=== PATIENT | female | born 1995 | race Caucasian/White ===

== ENCOUNTER 2019-06-03 08:13 | Emergency (ER) | payer OTHER ==
[~2019-06-03] VITALS: Ht 157.5 cm; Wt 91.6 kg
[2019-06-03] MEDS ORDERED: VITAMIN D3400 UNIT PO (08:49)
[2019-06-03] MEDS ORDERED: THERA1 EACH PO (08:50)
[2019-06-03] MEDS ORDERED: MAGNESIUM OXID500 MG PO (08:50)
[2019-06-03 08:56] LABS: Source, Urine Clean Catch
[2019-06-03 08:59] LABS: Appearance, Urine Cloudy (Clear); Bilirubin, Urine Neg (Neg); Blood, Urine 5+ (Neg); Color, Urine Yellow (P-Yellow); Glucose Qualitative, Urine Neg (Neg); Ketones, Urine Neg (Neg); Leukocyte Esterase, Urine 3+ (Neg); Nitrite, Urine Neg (Neg); Protein, Urine 2+ (Neg); Specific Gravity, Urine 1.015 (1.003-1.022); Urobilinogen, Urine NORM (Normal)
[2019-06-03 09:01] LABS: BASOPHILS ABSOLUTE AUTO 0.05 K/mm3 (0.00-0.23); BASOPHILS PERCENT AUTO 0 % (0-2); EOSINOPHILS ABSOLUTE AUTO 0.18 K/mm3 (0.00-0.68); EOSINOPHILS PERCENT AUTO 2 % (0-6); Hematocrit 38.6 % (33.0-51.0); Hemoglobin 13.8 g/dL (11.5-16.0); IMMATURE GRAN ABSOLUTE AUTO 0.04 K/mm3 (0.00-0.10); IMMATURE GRAN PERCENT AUTO 0 % (0-1); LYMPHOCYTES PERCENT AUTO 30 % (21-46); MONOCYTES ABSOLUTE AUTO 1.05 K/mm3 (0.16-1.47); MONOCYTES PERCENT AUTO 9 % (4-13); Mean Corpuscular HGB 31.7 pg (26.0-34.0); Mean Corpuscular HGB Conc 35.8 g/dL (31.5-36.5); Mean Corpuscular Volume 89 fL (80-100); Mean Platelet Volume 11.7 fL (9.1-12.4); NEUTROPHILS ABSOLUTE AUTO 7.26 K/mm3 (1.96-9.15); NEUTROPHILS PERCENT AUTO 59 % (41-73); Platelet Count 274 K/mm3 (150-400); RDW Coefficient Variation 11.1 % (11.7-14.2); RDW Standard Deviation 35.8 fL (35.1-46.3); Red Blood Cell Count 4.35 M/mm3 (3.80-5.20); White Blood Cell Count 12.28 K/mm3 (4.00-11.30)
[2019-06-03 09:20] LABS: Alanine Aminotransfer (ALT/SGP 18 U/L (12-78); Albumin, Blood 3.5 g/dL (3.4-5.0); Albumin/Globulin Ratio 0.8 (0.8-1.8); Alk Phos 93 U/L (50-136); Anion Gap 7 mmol/L (6-16); Aspartate Aminotrans (AST/SGOT 16 U/L (12-37); Bilirubin, Total 0.3 mg/dL (0.1-1.0); Blood Urea Nitrogen 8 mg/dL (8-24); Bun/Creatinine Ratio 9.5 (12.0-20.0); CO2, Blood 24 mmol/L (21-32); Calcium, Blood 8.5 mg/dL (8.5-10.1); Chloride, Blood 106 mmol/L (98-108); Creatinine, Blood 0.84 mg/dL (0.40-1.00); Globulin, Blood 4.2 g/dL (2.2-4.0); Glomerular Filtration Rate >60 (60-); Glucose, Blood 125 mg/dL (70-99); Potassium, Blood 3.2 mmol/L (3.5-5.5); Sodium, Blood 137 mmol/L (136-145); Total Protein, Blood 7.7 g/dL (6.4-8.2)
[2019-06-03 09:30] LABS: White Blood Cells, Urine TNTC /hpf (0-5)
[2019-06-03 09:31] LABS: Bacteria Many /hpf; Squamous Epithelial Cells Few /hpf (Few)
[2019-06-03] MEDS ORDERED: Pyridium200 MG PO (10:47)
[2019-06-03] MEDS ORDERED: CEFP200 PO (10:47)
== END 2019-06-03 11:03 | disposition home or self-care (01) ==
LOC: ER 08:13
PROVIDERS: Emergency Medicine
DX: N39.0 Urinary tract infection, site not specified (principal); N12 Tubulo-interstitial nephritis, not specified as acute or chronic; N83.201 Unspecified ovarian cyst, right side; D72.829 Elevated white blood cell count, unspecified; Z79.899 Other long term (current) drug therapy
CPT/HCPCS: 76705; 76830; 76856; 80053; 81001; 81025; 83690; 85025; 87077; 87086; 87186; 99284-25; J1885; J2405; J7120

== ENCOUNTER → 2019-06-21 | Outpatient (CLI) | payer OTHER ==
[~2019-06-21] MED LIST: CEFP200 PO; MAGNESIUM OXID500 MG PO; Pyridium200 MG PO; THERA1 EACH PO; VITAMIN D3400 UNIT PO
== END | disposition home or self-care (01) ==
LOC: LAB EV 16:43 → LAB SHORT 16:43
DX: N39.0 Urinary tract infection, site not specified (principal)
CPT/HCPCS: 87077; 87086; 87186

== ENCOUNTER → 2019-09-10 | Outpatient (CLI) | payer OTHER | END | disposition home or self-care (01) | LOC: LAB EV 12:43 → LAB SHORT 12:43 | DX: R30.0 Dysuria (principal); R30.9 Painful micturition, unspecified | CPT/HCPCS: 87077; 87086; 87186 ==

== ENCOUNTER 2019-12-03 03:32 | Emergency (ER) | payer OTHER ==
[~2019-12-03] VITALS: Ht 160 cm; Wt 95.2 kg
== END 2019-12-03 04:33 | disposition home or self-care (01) ==
LOC: ER 03:32
DX: J02.8 Acute pharyngitis due to other specified organisms (principal)
CPT/HCPCS: 87081; 87430; 99283; J1100

== ENCOUNTER 2020-08-28 15:09 | Emergency (ER) | payer OTHER ==
[~2020-08-28] VITALS: Ht 160 cm; Wt 79.4 kg
[2020-08-28 16:10] LABS: BASOPHILS ABSOLUTE AUTO 0.03 K/mm3 (0.00-0.23); BASOPHILS PERCENT AUTO 0 % (0-2); EOSINOPHILS ABSOLUTE AUTO 0.02 K/mm3 (0.00-0.68); EOSINOPHILS PERCENT AUTO 0 % (0-6); Hematocrit 39.2 % (33.0-51.0); Hemoglobin 13.7 g/dL (11.5-16.0); IMMATURE GRAN ABSOLUTE AUTO 0.02 K/mm3 (0.00-0.10); IMMATURE GRAN PERCENT AUTO 0 % (0-1); LYMPHOCYTES ABSOLUTE AUTO 1.92 K/mm3 (0.84-5.20); LYMPHOCYTES PERCENT AUTO 23 % (21-46); MONOCYTES ABSOLUTE AUTO 0.59 K/mm3 (0.16-1.47); MONOCYTES PERCENT AUTO 7 % (4-13); Mean Corpuscular HGB 31.8 pg (26.0-34.0); Mean Corpuscular HGB Conc 34.9 g/dL (31.5-36.5); Mean Corpuscular Volume 91 fL (80-100); Mean Platelet Volume 12.2 fL (9.1-12.4); NEUTROPHILS ABSOLUTE AUTO 5.65 K/mm3 (1.96-9.15); NEUTROPHILS PERCENT AUTO 69 % (41-73); Platelet Count 292 K/mm3 (150-400); RDW Coefficient Variation 11.4 % (11.7-14.2); RDW Standard Deviation 38.4 fL (35.1-46.3); Red Blood Cell Count 4.31 M/mm3 (3.80-5.20); White Blood Cell Count 8.23 K/mm3 (4.00-11.30)
[2020-08-28] MEDS ORDERED: LAMO25 (16:18)
[2020-08-28] MEDS ORDERED: METOCLOPRAMIDE H5 M2 PO (16:19)
[2020-08-28 16:35] LABS: Source, Urine Clean Catch
[2020-08-28 16:35] LABS: Alanine Aminotransfer (ALT/SGP 15 U/L (12-78); Albumin, Blood 3.9 g/dL (3.4-5.0); Albumin/Globulin Ratio 1.1 (0.8-1.8); Alk Phos 75 U/L (50-136); Anion Gap 5 mmol/L (6-16); Aspartate Aminotrans (AST/SGOT 12 U/L (12-37); Bilirubin, Total 0.4 mg/dL (0.1-1.0); Blood Urea Nitrogen 6 mg/dL (8-24); Bun/Creatinine Ratio 7.4 (12.0-20.0); CO2, Blood 26 mmol/L (21-32); Chloride, Blood 109 mmol/L (98-108); Creatinine, Blood 0.81 mg/dL (0.40-1.00); Ethanol (Alcohol), Blood, Med <3 mg/dL; Globulin, Blood 3.5 g/dL (2.2-4.0); Glomerular Filtration Rate >60 (60-); Glucose, Blood 104 mg/dL (70-99); Potassium, Blood 3.6 mmol/L (3.5-5.5); Salicylate <1.7 mg/dL (2.8-20.0); Sodium, Blood 140 mmol/L (136-145); Total Protein, Blood 7.4 g/dL (6.4-8.2)
[2020-08-28 16:37] LABS: Appearance, Urine Clear (Clear); Bilirubin, Urine Neg (Neg); Blood, Urine Neg (Neg); Color, Urine Yellow (P-Yellow); Glucose Qualitative, Urine Neg (Neg); Ketones, Urine 1+ (Neg); Leukocyte Esterase, Urine 1+ (Neg); Nitrite, Urine Neg (Neg); Protein, Urine Neg (Neg); Specific Gravity, Urine 1.015 (1.003-1.022); Urobilinogen, Urine 1+ (Normal)
[2020-08-28 16:43] LABS: Acetaminophen, Random <2.0 ug/mL (10.0-30.0)
[2020-08-28 16:48] LABS: Bacteria Few /hpf; Squamous Epithelial Cells Few /hpf (Few)
[2020-08-28 17:14] LABS: U Cannabinoids Screen DETECTED
[2020-08-28 17:15] LABS: U Amphetamine Screen Not Detected; U Barbituate Screen Not Detected; U Benzodiazapine Screen Not Detected; U Buprenorphine Screen Not Detected; U Cocaine Screen Not Detected; U Methadone Screen Not Detected; U Methamphetamine Screen Not Detected; U Opiates Screen Not Detected; U Oxycodone Screen Not Detected; U Phencyclidine Screen Not Detected; U Propoxyphene Screen Not Detected
[2020-08-28] MEDS ORDERED: Ativan1 MG PO ×2 (18:40→18:47)
== END 2020-08-28 19:22 | disposition home or self-care (01) ==
LOC: ER 15:09
PROVIDERS: Physician Assistant
DX: F41.9 Anxiety disorder, unspecified (principal); F43.10 Post-traumatic stress disorder, unspecified; Z79.899 Other long term (current) drug therapy
CPT/HCPCS: 36415; 80053; 81001; 81025; 85025; 87086; 99285; G0480

== ENCOUNTER → 2020-09-16 | Outpatient (CLI) | payer OTHER ==
[~2020-09-16] MED LIST changes: +Ativan1 MG PO; +HYDHCL25 PO; +LAMO25; +METOCLOPRAMIDE H5 M2 PO; +OLAN5 PO
== END | disposition home or self-care (01) ==
LOC: LAB SHORT 11:53
DX: R53.83 Other fatigue (principal)
CPT/HCPCS: 84443; 87086

== ENCOUNTER 2020-09-23 23:53 | Emergency (ER) | payer OTHER ==
[~2020-09-23] VITALS: Ht 157.5 cm; Wt 74.8 kg
[~2020-09-23 23:53] MED LIST changes: -HYDHCL25 PO; -OLAN5 PO
[2020-09-24] MEDS ORDERED: HYDHCL25 PO (01:11)
== END 2020-09-24 01:40 | disposition home or self-care (01) ==
LOC: ER 23:53
DX: T40.7X1A Poisoning by cannabis (derivatives), accidental (unintentional), initial encounter (principal); F30.9 Manic episode, unspecified; Z79.899 Other long term (current) drug therapy; Z88.8 Allergy status to other drugs, medicaments and biological substances
CPT/HCPCS: 99282

== ENCOUNTER 2020-09-28 22:54 | Emergency (ER) | payer OTHER ==
[~2020-09-28] VITALS: Ht 160 cm; Wt 68.0 kg
[~2020-09-28 22:54] MED LIST changes: +HYDHCL25 PO
[2020-09-28] MEDS ORDERED: OLAN5 PO (23:14)
== END 2020-09-29 00:17 | disposition home or self-care (01) ==
LOC: ER 22:54
DX: L98.1 Factitial dermatitis (principal); Z79.899 Other long term (current) drug therapy
CPT/HCPCS: 99282

== ENCOUNTER 2025-01-21 20:18 | Emergency (ER) | payer OTHER ==
[~2025-01-21] VITALS: Ht 160 cm; Wt 88.5 kg
[~2025-01-21 20:18] MED LIST changes: +ACET500 PO; +METO25ER PO; +OLAN5 PO; +PERIDEX15 ML MM
[2025-01-21 20:21] VITALS: BP 156/91
[2025-01-21 20:45] LABS: BASOPHILS ABSOLUTE AUTO 0.05 K/mm3 (0.00-0.23); BASOPHILS PERCENT AUTO 1 % (0-2); EOSINOPHILS ABSOLUTE AUTO 0.12 K/mm3 (0.00-0.68); EOSINOPHILS PERCENT AUTO 1 % (0-6); Hematocrit 37.8 % (33.0-51.0); Hemoglobin 13.3 g/dL (11.5-16.0); IMMATURE GRAN ABSOLUTE AUTO 0.02 K/mm3 (0.00-0.10); IMMATURE GRAN PERCENT AUTO 0 % (0-1); LYMPHOCYTES PERCENT AUTO 20 % (21-46); MONOCYTES ABSOLUTE AUTO 0.67 K/mm3 (0.16-1.47); MONOCYTES PERCENT AUTO 7 % (4-13); Mean Corpuscular HGB Conc 35.2 g/dL (31.5-36.5); Mean Corpuscular Volume 91 fL (80-100); Mean Platelet Volume 11.8 fL (9.1-12.4); NEUTROPHILS ABSOLUTE AUTO 6.77 K/mm3 (1.96-9.15); NEUTROPHILS PERCENT AUTO 71 % (41-73); Platelet Count 281 K/mm3 (150-400); RDW Coefficient Variation 11.5 % (11.7-14.2); RDW Standard Deviation 38.5 fL (35.1-46.3); Red Blood Cell Count 4.15 M/mm3 (3.80-5.20); White Blood Cell Count 9.53 K/mm3 (4.00-11.30)
[2025-01-21 21:05] LABS: Albumin, Blood 3.7 g/dL (3.4-5.0); Albumin/Globulin Ratio 0.9 (0.8-1.8); Bilirubin, Total 0.4 mg/dL (0.1-1.0); Bun/Creatinine Ratio 13.7 (12.0-20.0); Calcium, Blood 8.7 mg/dL (8.5-10.1); Creatinine, Blood 0.8 mg/dL (0.40-1.00); Globulin, Blood 3.9 g/dL (2.2-4.0); Potassium, Blood 3.7 mmol/L (3.5-5.5); Total Protein, Blood 7.6 g/dL (6.4-8.2)
[2025-01-21] MEDS ORDERED: METO25ER PO (23:44)
== END 2025-01-21 23:59 | disposition home or self-care (01) ==
LOC: ER 20:18
PROVIDERS: Student in an Organized Health Care Education/Training Program
DX: M54.2 Cervicalgia (principal); G89.29 Other chronic pain; I10 Essential (primary) hypertension; Z88.8 Allergy status to other drugs, medicaments and biological substances
CPT/HCPCS: 80053; 85025; 99283

== ENCOUNTER 2025-04-27 02:02 | Observation (INO) | payer OTHER ==
[~2025-04-27] VITALS: Ht 160 cm; Wt 89.4 kg
[2025-04-27 03:31] LABS: Source, Urine Clean Catch
[2025-04-27 03:33] LABS: Bilirubin, Urine Neg (Neg); Glucose Qualitative, Urine Neg (Neg); Ketones, Urine Neg (Neg); Leukocyte Esterase, Urine Neg (Neg); Protein, Urine 1+ (Neg); Specific Gravity, Urine 1.010 (1.003-1.022); Urobilinogen, Urine NORM (Normal)
[2025-04-27 03:41] LABS: Color, Urine Yellow (P-Yellow)
[2025-04-27 03:42] LABS: BASOPHILS ABSOLUTE AUTO 0.06 K/mm3 (0.00-0.23); BASOPHILS PERCENT AUTO 1 % (0-2); EOSINOPHILS ABSOLUTE AUTO 0.10 K/mm3 (0.00-0.68); EOSINOPHILS PERCENT AUTO 1 % (0-6); Hematocrit 35.8 % (33.0-51.0); Hemoglobin 12.6 g/dL (11.5-16.0); IMMATURE GRAN ABSOLUTE AUTO 0.02 K/mm3 (0.00-0.10); IMMATURE GRAN PERCENT AUTO 0 % (0-1); LYMPHOCYTES ABSOLUTE AUTO 2.44 K/mm3 (0.84-5.20); LYMPHOCYTES PERCENT AUTO 24 % (21-46); MONOCYTES ABSOLUTE AUTO 0.88 K/mm3 (0.16-1.47); MONOCYTES PERCENT AUTO 9 % (4-13); Mean Corpuscular HGB Conc 35.2 g/dL (31.5-36.5); Mean Corpuscular Volume 91 fL (80-100); NEUTROPHILS ABSOLUTE AUTO 6.53 K/mm3 (1.96-9.15); NEUTROPHILS PERCENT AUTO 65 % (41-73); NRBC ABSOLUTE 0.00 K/mm3 (0.00-0.02); NRBC Auto 0.0 /100 WBC (0.0-0.2); Platelet Count 255 K/mm3 (150-400); RDW Coefficient Variation 11.5 % (11.7-14.2); RDW Standard Deviation 38.5 fL (35.1-46.3)
[2025-04-27 03:42] LABS: Red Blood Cells, Urine 0-2 /hpf (0-2); White Blood Cells, Urine 0-2 /hpf (0-5)
[2025-04-27 03:45] LABS: U Amphetamine Screen Not Detected; U Barbituate Screen Not Detected; U Benzodiazapine Screen Not Detected; U Buprenorphine Screen Not Detected; U Cannabinoids Screen DETECTED; U Cocaine Screen Not Detected; U Methadone Screen Not Detected; U Methamphetamine Screen Not Detected; U Opiates Screen Not Detected; U Oxycodone Screen Not Detected; U Phencyclidine Screen Not Detected
[2025-04-27 04:00] LABS: Ethanol (Alcohol), Blood, Med 5 mg/dL; Salicylate <1.7 mg/dL (2.8-20.0)
[2025-04-27 04:03] LABS: Alanine Aminotransfer (ALT/SGP 22 U/L (12-78); Albumin, Blood 3.5 g/dL (3.4-5.0); Albumin/Globulin Ratio 0.9 (0.8-1.8); Anion Gap 9 mmol/L (3-11); Aspartate Aminotrans (AST/SGOT 23 U/L (12-37); Bilirubin, Total 0.5 mg/dL (0.1-1.0); Blood Urea Nitrogen 5 mg/dL (8-24); CO2, Blood 23 mmol/L (21-32); Calcium, Blood 8.5 mg/dL (8.5-10.1); Chloride, Blood 109 mmol/L (98-108); Creatinine, Blood 0.70 mg/dL (0.40-1.00); Globulin, Blood 3.8 g/dL (2.2-4.0); Glucose, Blood 100 mg/dL (70-99); Potassium, Blood 3.3 mmol/L (3.5-5.5); Sodium, Blood 138 mmol/L (136-145); Total Protein, Blood 7.3 g/dL (6.4-8.2)
[2025-04-27 04:05] LABS: Acetaminophen, Random <2.0 ug/mL (10.0-30.0)
[2025-04-27 08:36] VITALS: BP 122/60
[2025-04-27] MEDS ORDERED: METOPROLOL SUCC25 MG PO (08:38)
[2025-04-27] MEDS ORDERED: VALTREX50013 PO (08:39)
== END 2025-04-27 11:27 | disposition other institution (70) ==
LOC: ER 02:02 → EOR 02:03
PROVIDERS: ADMIT Student in an Organized Health Care Education/Training Program
DX: F31.2 Bipolar disorder, current episode manic severe with psychotic features (principal); R45.850 Homicidal ideations; F43.10 Post-traumatic stress disorder, unspecified; G90.50 Complex regional pain syndrome I, unspecified; I10 Essential (primary) hypertension; Z79.899 Other long term (current) drug therapy; Z88.8 Allergy status to other drugs, medicaments and biological substances; Z91.011 Allergy to milk products
CPT/HCPCS: 80053; 80320; 81001; 81025; 85025; 93005; 93010; 99285; A9270; G0378; G0480

== ENCOUNTER 2025-04-27 07:41 | Inpatient (IN) | payer OTHER ==
[~2025-04-27] VITALS: Ht 160 cm; Wt 93.1 kg
[2025-04-27] MEDS ORDERED: METOPROLOL SUCC25 MG PO (08:38)
[2025-04-27] MEDS ORDERED: VALTREX50013 PO (08:39)
[2025-04-27 11:46] VITALS: BP 137/106
[2025-04-27 13:00] VITALS: BP 137/106
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
[2025-04-27] MEDS ORDERED: Ondansetron 4 MG SoluTab MM PRN ×2 (14:10→20:55)
--- NOTE | 2025-04-27 14:12 | NUR ---
SANDEEP DOCUMENTATION: PT HAS BILATERAL EARRINGS AND PIERCING IN PLACE ABOVE HER L UPPER LIP. SHE STATES THAT SHE WAS IS UNABLE TO REMOVE THESE. CHIEF EMBALMER HAS ATTEMPTED TO ASSIST PT AND SANDEEP WAS NOT ABLE TO BE REMOVED.
[2025-04-27] MEDS ORDERED: Haloperidol Lactate Inj. 5 MG/ML Injection IM PRN (14:15)
[2025-04-27] MEDS ORDERED: Aluminum Hydroxide 320MG/5ML 473 ML PO PRN (14:15)
[2025-04-27] MEDS ORDERED: Polyethylene Glycol 3350 17 gm PO PRN (14:20)
[2025-04-27 20:27] VITALS: BP 134/99
--- NOTE | 2025-04-27 20:45 | NUR ---
NOTIFY DOCTOR DOCTOR ADORE NOTIFIED OF PATIENT REFUSING TO TAKE ZYPREXA DUE TO IT MAKING HER FEEL AND SEE BUGS ON HER BODY, PATIENT VERBALIZED THAT SHE IS ABLE TO TAKE SEROQUEL. SEE NEW ORDERS.
--- NOTE | 2025-04-28 05:22 | NUR ---
SHIFT SUMMARY PATIENT UP IN MILIEU AND PACING IN GUILLEN. AT BEGGING OF SHIFT YELLING OUT WHILE IN THE SHOWER, FOUND IN THE SHOWER WITH THE LIGHTS OFF AND WATER OFF, ABLE TO TALK TO PATIENT AND SHE WAS ABLE TO DRY SELF AND DRESS SELF AND THEN SHE WAS ABLE TO WIPE THE FLOOR DRY WITH TOWEL. PATIENT VERBALIZED THAT SHE HAS CHRONIC PAIN TO THE RIGHT SIDE OF HER FACE DOWN THE RIGHT SIDE OF HER BODY. MEDICATED WITH IBUPROFEN AND TYLENOL PER EMAR. PATIENT REF ZYPREXA DUE IT CAUSING HALLUCINATIONS OF BUGS. DENIES SI, HI, OR AVH. PATIENTS CONVERSATION RANGING FROM TANGENTIAL TO LINEAR AND BACK TO TANGENTIAL ALL IN ONE CONVERSATION. PATIENT PUTTING SELF ON THAT FLOOR SEVERAL TIMES DURING THE NIGHT, YELLING OUT "HELP ME" AND INSISTING THAT SHE CAN'T GET UP, YET WHILE TALKING TO PATIENT SHE IS ABLE TO GET UP WITHOUT DIFFICULTY. SEVERAL TIMES PATIENT SEEN DANCING WHILE WALKING IN GUILLEN LISTENING TO MUSIC. CONTINUE TO MONITOR Q15MIN AND REASSURE PATIENT THAT SHE IS IN A SAFE PLACE.
--- NOTE | 2025-04-28 05:52 | NUR ---
JEWELRY DOCUMENTATION 1 EARRING TO EACH EAR AND 1 SMALL STUD TO UPPER LIP REMAIN IN PLACE
[2025-04-28 08:43] LABS: CHOL/HDL RATIO 3.1; Cholesterol 174 mg/dL (50-200); HDL Cholesterol 57 mg/dL (>39); LDL/HDL RATIO 1.8; Low Density Lipoprotein Chol 100 mg/dL (0-110); Triglycerides 85 mg/dL (30-140); Very Low Density Lipoprot Chol 17 mg/dL (6-28)
[2025-04-28] MEDS ORDERED: Multivitamins 1 Tab PO SCH (09:00)
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
--- NOTE | 2025-04-28 11:39 | NUR ---
ONE TIME ORDER FOR ZYPREXA 10MG IM RECIEVED FROM DR. BOWERS. ATTEMPTED TO TALK TO PATIENT ABOUT MEDICATION AND BEING LET OUT FROM SECLUSION. SHE QUICKLY ESCALATED AND BEGAN SCREAMING THAT SHE WAS GOING TO KILL STAFF. SHE BEGAN JUMPING UP AND DOWN AND LUNGING AT STAFF WHILE SCREAMING THAT SHE WAS GOING TO KILL US. BUSINESS EDUCATION TEACHER ELISABETH RODRIGUEZ, DIANNA RN, AND THIS RN ASSISTED PATIENT TO EBONIE IN SECLUSION ROOM. ZYPREXA 10MG IM ADMINISTERED TO R GLUTEOUS FOR MASS SCORE OF 20. STAFF HELD DEBRIEF AFTER INCIDENT. NO INJURIES NOTED ON PATIENT OR STAFF
--- NOTE | 2025-04-28 17:57 | NUR ---
SHIFT SUMMARY PLEASE SEE ALL NOTES FROM DAY SHIFT PRIOR TO THIS, ESPECIALLY SECLUSION NOTES. PT HAS A ROUGH MORNING, STARTED BY THROWING UP IN THE BATHROOM BEFORE BKFT. SHE ATTENDED BKFT AFTER LAB DRAW, THEN WHILE SITTING IN CHAIR NEXT TO DAY ROOM DOOR SHE PROCEEDED TO THROWUP AGAIN WITHOUT ANY CONCERN OF GETTING TO BATHROOM OR ASKING FOR HELP. SHE JUST SAT AND STARED AT THE EMISIS. AFTER THIS WAS CLEANED UP, PT SAT THERE AND PROCEEDED TO ESCALTE TO THE POINT OF BEING PUT IN SECLUSION AT 10:30. WE GOT AN ORDER FOR IM ZYPREXA AND IT WAS ADMINISTERED. SHE WAS OUT OF SECLUSION BY 12:00, ATTENDED LUNCH. WANDERED THE UNIT FOR AWHILE AND HAS BEEN ASLEEP SINCE THAT TIME, JUST WAKING A LITTLE BIT AGO. SHE STATES "WOW, I REALLY SLEPT FOR THE FIRST TIME IN AWHILE". WE DISCUSSED "WHY" SHE SLEPT AND THE IM INJECTION. SHE SEEMS WILLING TO ALLOW IT AGAIN AND WILL MOST LIKELY MEDICATE AGAIN PRIOR TO SHIFT CHANGE. SHE IS USING THE PHONE AT THIS POINT TALKING TO HER GRANDMOTHER. SHE HAS DENIED SI/HI BUT DOES ENDORSE AUDITORY AND OTHER THAN 1:1 DURING SECLUSION SHE HAS RECEIVED Q15 MIN SAFETY CHECKS THIS SHIFT.
--- NOTE | 2025-04-28 19:09 | NUR ---
JEWELRY PT HAS ALL ITEMS OF JEWELRY THAT NON REMOVEABLE IN PLACE DURING ASSESSMENT
[2025-04-28 21:18] VITALS: BP 134/90
--- NOTE | 2025-04-29 02:09 | NUR ---
Patient given tylenol per her request for right facial pain at 2345. to bed shortly after that. So far, sleeping well. Will continue every 15 minute checks for safety.
--- NOTE | 2025-04-29 03:54 | NUR ---
Patient is alert and oriented times four. She spent a great deal of time pacing in the halls last night, as well as journaling. Speech was pressured and abundent and tangental in nature. She received tylenol for facial pain at 2345 and has been sleeping since just right after that time. When told at midnight she had to go to bed, she did not want to go. Zyprexa was offered to help her sleep, but she refused it. When she got out of her chair by the desk, and stated "sometimes I am just too weak to walk without help". This RN and the [facility] assisted her back to bed. Will continue close monitoring every 15 minutes for safety and comfort. Cadnida has one earring in each ear and a stud just above her lip and are not removeable.
[2025-04-29 05:52] VITALS: BP 143/101
[2025-04-29 09:14] VITALS: BP 159/106
--- NOTE | 2025-04-29 17:45 | NUR ---
SHIFT SUMMARY PT AA&O TO PERSON, PLACE AND SITUATION. MOOD RANGES FROM SAD TO EUTHYMIC. SHE PRESENTS ELEVATED AT TIMES WITH PRESSURED TANGENTAL SPEECH DANCING AROUND TO DEPRESSED AND EMOTIONALY LABILE REPORTING MANY SOMATIC AILMENTS. PT DID REQUIRE 1X ZYPREXA IM. SHE TOLERATED WELL AND CALMED SOON AFTER PT IS HAVING A HARD TIME ACCEPTING BIPOLAR DX. EDUCATION ON S/S OF OMA GIVEN TO PATIENT. SHE WAS ABLE TO IDENTIFY SEVERAL SYMPTOMS THAT SHE IS EXPERIENCING AND REPORTED THAT SHE "JUST NEEDS SOME TIME" TO ACCEPT. PT GIVEN TRIAL OF RISPERIDONE TODAY THAT SHE HAS TOLERATED WELL WITH PLAN FOR INVEGA INJECTION 04/30/25. SHE DENIES SI. AVH. SHE DOES REPORT THAT SHE IS HAVING A DIFFICULT TIME THINKING. SHE STATES THAT THE MEDICATION IS HELPING. SHE HAS BEEN UP TO SHOWER MEALS AND PARTICIPATING IN THE [place]. SHE DID HAVE A NAP
[2025-04-29 20:04] VITALS: BP 134/98
[2025-04-30 02:01] VITALS: BP 130/88
--- NOTE | 2025-04-30 04:26 | NUR ---
SHIFT SUMMARY PT IN GROUP ROOM COLORING AT THE START OF SHIFT. SHE DENIES ANY SI, HI, OR AVTH. SHE HAS OBSESSIVE, OVERABUNDANCE OF THOUGHTS WITH A FAST RATE OF SPEECH. SHE RATED HER ANXIETY AT A 3/10, BUT STATES THAT SHE IS ABLE TO CONTROL IT AND DOES NOT NEED ANY MEDICATION FOR ANXIETY. SHE INITIALLY REPORTED HAVING PAIN TO THE BACK OF HER RIGHT SHOULDER, STATING SHE HAS TRIGEMINAL NERVE PAIN AND REQUESTED AND RECEIVED PRN TYLENOL. PT HAD EVENING SNACK AND WAS COMPLIANT WITH EVENING MEDICATIONS. PT REQUESTED AND RECEIVED MELATONIN TO ASSIST WITH SLEEPING. SHE ALSO REQUESTED AND RECEIVED PRN IBUPROFEN FOR A HEADACHE. SHE PACED IN THE HALLWAY WITH HEADPHONES AND WENT TO BED AT APPROXIMEATLEY 2100. SHE PRESENTED TO THE NURSES STATION A COUPLE OF TIMES DURING THE NIGHT TO CHECK ON THE TIME. AT APPROXIMATELY 0200 PT PRESENTED TO NURSES STATION AND C/O LEG PAIN RATED AT 4/10. SHE REQUESTED AND RECEIVED PRN TYLENOL. SHE STATED SHE WAS FEELING FUNNY AND FELT LIKE SHE COULD NOT BREATH. SHE DENIED FEELING ANXIOUS. PT WAS IN NO DISTRESS, RESPIRATIONS EVEN AND UNLABORED. BP 130/88, P 95, RR 16, PULSE OX 98% ON RA. PT APPEARS SLEEPY AND WAS ASSISTED BACK TO BED. PT HAS PIERCINGS TO BILATERAL EARS AND TO LEFT UPPER LIP, ALL IN PLACE AND INTACT. Q15 MINUTE CHECKS TO CONTINUE PER PT SAFETY.
--- NOTE | 2025-04-30 06:11 | NUR ---
UPDATE PT AWAKE AND PRESENTED TO NURSES STATION AT APPROXIMATELY 0530. REPORTS NAUSEA AND CONSTIPATION AND REQUESTS ZOFRAN AND MIRALAX. WHEN PT ASKED IF SHE HAD A BOWEL MOVEMENT YESTERDAY SHE STATES SHE CAN'T REMEMBER BUT SHE FEELS CONSTIPATED. MEDICATIONS GIVEN REQUESTED. PT WALKING IN HALLWAY, WITH HEADPHONES ON AND DANCING. WILL GIVE REPORT TO ONCOMING SHIFT.
[2025-04-30 07:51] VITALS: BP 148/100
[2025-04-30 11:13] VITALS: BP 120/95
[2025-04-30 17:28] VITALS: BP 136/96
--- NOTE | 2025-04-30 17:33 | NUR ---
SHIFT SUMMARY PT A/O X3; PLEASANT AND COOPERATIVE WITH CARE. SHE DENIES SI, HI, AVTH. PT DOES C/O SEVERAL MEDICAL ISSUES. SHE C/O ITCHING, NERVE PAIN, AND VARIOUS OTHER ISSUES. PT TREATED PER EMR. SHE PARTICIPATED IN MOST GROUPS AND MEALS. SHE OFTEN LIKES TO PACE THE UNIT AND LISTEN TO MUSIC. SHE IS ROUNDED ON Q15 FOR SAFETY AND WELLNESS.
[2025-04-30 20:50] VITALS: BP 133/99
--- NOTE | 2025-05-01 05:37 | NUR ---
SHIFT SUMMARY Patient is alert and oriented times four. She is very tangential in her speech,and focused on several different physical maladies that she states that she has. Sleep is poor as she cannot stop thinking about all of the symptoms she has. She is very upset about her diagnosis of bi-polar, and is convinced her only diagnosis is PTSD (or cPTSD per patient). She is requesting Claritin 10mg for her allergies and Guafenesin 600mg for her cough. Will continue close observation every 15 minutes for safety and comfort
[2025-05-01 09:03] VITALS: BP 154/105
[2025-05-01 12:03] VITALS: BP 128/92
[2025-05-01 16:51] VITALS: BP 133/92
--- NOTE | 2025-05-01 17:42 | NUR ---
SHIFT SUMMARY PT A/O X3; PLEASANT AND COOPERATIVE WITH CARE. SHE DENIES SI, HI, AVTH. SHE REPORTS FEELING "ITCHY" ON HER ARMS, CHEST, AND NECK. NO RASH VISUALIZED AT THIS TIME. PT REPORTS THAT THE ITCHING IS GETTING WORSE AND SUSPECTS THAT IT MAY BE THE RISPERIDONE SINCE IT'S THE ONLY MEDICATION THAT SHE HAS NOT HAD BEFORE. DR. CHEN NOTIFIED AND WILL SPEAK WITH PATIENT IN THE AM. PT AGREEABLE TO THIS. PT REPORTS TAKING CLARITIN AT HOME FOR ALLERGIES BUT LISTS "HISTAMINES" AN ALLERGY. SHE ATTENDED ALL GROUPS AND MEALS THIS SHIFT.
[2025-05-01 20:45] VITALS: BP 126/92
--- NOTE | 2025-05-02 04:15 | NUR ---
SHIFT SUMMARY Patient is alert and oriented times four. She was in and out of her room most of the evening pacing the halls and in the day room coloring. She came to the nurses station and asked for her evening medications and a claritin for her itching which she states is from the Risperdone. She declined Visteral, then she started crying. i offered her a zyprexa which she took, rubbed some lotion on her back and she finally went to bed. She has been sleeping since approximately 2200 last night. She denied SI,HI and AVTH during evening assessment. Will continue close observation every 15 minutes for safety and comfort.
[2025-05-02 07:47] VITALS: BP 139/112
--- NOTE | 2025-05-02 18:28 | NUR ---
SHIFT SUMMARY: PT ALERT AND COOPERATIVE WITH CARE. SHE DENIES SI, HI AND AVH. SHE WAS PRESENT ON THE UNIT AND ACTIVE IN MILIEU. SHE SPENT TIME WALKING IN THE HALLS, LISTENING TO MUSIC, TALKING WITH PEERS AND STAFF AND WATCHING TV IN THE DAY ROOM. PT C/O HEADACHE, THROAT PAIN AND LEG PAIN OFF AND ON THROUGHOUT THE DAY. SHE WAS MEDICATED WITH PRN PER EMAR ORDERS. SHE REFUSED THE AM RISPERIDONE, STATED THAT IT SHE DIDN'T LIKE HOW IT MADE HER FEEL. SHE DISCUSSED THIS WITH HER PROVIDER AND NEW ORDERS WERE NOTED. SHE C/O CONSTIPATION AND WAS MEDICATED WITH MIRILAX PER EMAR AND REPORTED A BM THIS AFTERNOON. SHE ATTENDED MEALS AND GROUPS.
[2025-05-02 20:32] VITALS: BP 134/122
--- NOTE | 2025-05-02 22:48 | NUR ---
MED SHIFT SUMMARY Patient is alert and oriented times four. She has been up in the halls and to the sensory room multiple times tonight. She complained of a dull headache and bilateral leg pain. (which she had last night as well) During evening assessment, Candida denied SI,HI and AVTH. She is frequently approaching this RN asking if there is are a ny additional medications ordered for her body aches or sore right eye from her Trigeminal Neuralgia to allergies. She did agree to take her zyprexa tonight, and is hooping for a good sleep tonight. Took hot shower before bed. In good spirits regarding discharge tomorrow. Will continiue close observation every 15 minutes for safety and comfort.
[2025-05-02] MEDS ORDERED: DEXTROMETHORPHAN/BENZOCAINE 1 EACH LOZENGE MT PRN (23:50)
--- NOTE | 2025-05-03 04:27 | NUR ---
END OF SHIFT UPDATE ASSUMED CARE OF PT AT 0015. PT PRESENTED TO NURSES STATION AT APPROXIMATELY 0025, REPORTS HAVING A HEADACHE, REQUESTS IBUPROFEN. SHE ALSO REPORTS FEELING ANXIOUS AND IS RESTLESS, SHE WAS TEARFUL AND REQUESTS ZYPREXA. MASS SCORE OF 4. PT RECEIVED IBUPROFEN AND ZYPREXA AND CALMED QUICKLY AND WENT BACK TO BED. Q15 MINUTE CHECKS TO CONTINUE PER PT SAFETY.
[2025-05-03 08:05] VITALS: BP 130/95
--- NOTE | 2025-05-03 11:09 | NUR ---
IMPORTANT DISCHARGE INFORMTION PATIENT DISCHARGING TODAY. SHE WILL BE DISCHARGED HOME VIA [facility]. [place] TIME IS AROUND 1:45PM. ALL PARTIES VERBALIZE AN UNDERSTANDING. PATIENT HAS FOLLOW UP [facility] ON 05/08/25 AT 12:30PM WITH PCP [facility] IN [place]. FOLLOW UP APPOINTMENT WITH [facility] ON 05/10 AT 1PM WITH [facility]. [facility]ARMA[facility]: [facility] FAX .
[2025-05-03] MEDS ORDERED: BUSPIRONE HCL5 M1 PO (11:18)
[2025-05-03] MEDS ORDERED: OLAN10 PO (11:18)
--- NOTE | 2025-05-03 13:53 | NUR ---
DISCHARGE NOTE: PT DISCHARGE HOME. SHE STATES UNDERSTANDING OF DISCHARGE INSTRUCTIONS AND DENIED QUESTIONS. PT BELONGINGS RETURNED TO PATIENT BY ALANNA LEVIN. PT AMBULATED OUT OF DEPT TO AWAITING TRANSPORT WITH DISCHARGE INSTRUCTIONS AND BELONGINGS IN HAND.
== END 2025-05-03 13:56 | disposition home or self-care (01) | DRG 885 ==
LOC: BHU 07:41
PROVIDERS: ADMIT Student in an Organized Health Care Education/Training Program
DX: F30.2 Manic episode, severe with psychotic symptoms (principal); Z91.011 Allergy to milk products; Z88.8 Allergy status to other drugs, medicaments and biological substances; Z91.018 Allergy to other foods; Z79.899 Other long term (current) drug therapy
CPT/HCPCS: 36415; 80061; 83036; 93005; 93010; A9270